=== PATIENT | female | born 1965 | race Caucasian/White ===

== ENCOUNTER 2017-08-21 14:50 | Emergency (ER) | payer OTHER ==
[2017-08-21 17:14] VITALS: BP 135/82
[2017-08-21] MEDS ORDERED: Ketorolac INJ* 60 MG/2 ML VIAL IM ONE (17:33)
--- NOTE | 2017-08-21 17:33 | UC ---
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 holding on to a piece of metal and now has pain in right lower back - History of Current Complaint Chief Complaint: UCBackPain Stated Complaint: BACK PAIN Time Seen by Provider: 08/21/17 17:05 Hx Obtained From: Patient Hx Last Menstrual Period: Jul 22 ?: No Onset/Duration: Sudden Onset, Lasting Days - 1, Still Present Timing: Constant Severity Initially: Moderate Severity Currently: Moderate Pain Intensity: 6 Pain Scale Used: 0-10 Numeric Back Pain: Is Discrete @ Character: Aching, Throbbing, Spasmodic, Stiffness Aggravating Factor(s): Movement Alleviating Factor(s): Nothing Associated Signs And Symptoms: Positive: Negative Related History: Previous Back Injury - Allergies/Home Medications Allergies/Adverse Reactions: Allergies Allergy/AdvReac Type Severity Reaction Status Date / Time Morphine and Related Allergy Severe Difficulty Verified 08/21/17 17:05 Breathing PMH/Surg Hx/FS Hx/Imm Hx Previously Healthy: Yes - Surgical History Surgical History: None - Family History Known Family History: Positive: None - Social History Occupation: Employed Full-time, Works From/At Home Lives: With Family Alcohol Use: Occasionally Substance Use Type: None Smoking Status (MU): Never Smoked Tobacco - Immunization History Most Recent Influenza Vaccination: 06/01/14 Review of Systems Constitutional: Negative Skin: Negative Eyes: Negative ENT: Negative Respiratory: Negative Cardiovascular: Negative Gastrointestinal: Negative Genitourinary: Negative Motor: Negative Neurovascular: Negative Musculoskeletal: Myalgia - lower back Neurological: Negative Psychological: Negative Is Patient Immunocompromised?: No All Other Systems Reviewed And Are Negative: Yes Physical Exam Triage Information Reviewed: Yes Appearance: Well-Appearing, No Pain Distress, Well-Nourished Vital Signs: Initial Vital Signs Temp 98.3 F 08/21/17 17:07 Pulse 68 08/21/17 17:07 Resp 20 08/21/17 17:07 BP 135/82 08/21/17 17:07 Pulse Ox 98 08/21/17 17:07 Vital Signs Reviewed: Yes Eye Exam: Normal Eyes: Positive: Conjunctiva Clear ENT Exam: Normal ENT: Positive: Normal ENT inspection, Hearing grossly normal. Negative: Nasal congestion, Nasal drainage, Trismus, Muffled voice, Hoarse voice Dental Exam: Normal Neck exam: Normal Neck: Positive: Supple, Nontender Respiratory Exam: Normal Respiratory: Positive: Chest non-tender, No respiratory distress, No accessory muscle use Cardiovascular Exam: Normal Cardiovascular: Positive: RRR, Pulses Normal, Brisk Capillary Refill Musculoskeletal Exam: Normal Musculoskeletal: Positive: Strength Intact, No Edema, ROM Limited @ - lower back Neurological Exam: Normal Neurological: Positive: Alert Psychological Exam: Normal Skin Exam: Normal Back Pain Course/Dx - Course Course Of Treatment: continue gental exercise and yoga NSAID andd muscle relaer follow with pcp - Differential Dx/Diagnosis Provider Diagnoses: Low back strain Discharge - Discharge Plan Condition: Stable Disposition: HOME Prescriptions: Cyclobenzaprine TAB* [Flexeril 10 MG TAB*] 10 mg PO TID PRN #20 tab PRN Reason: muscle spasm Ibuprofen TAB* [Motrin TAB* 600 MG] 600 mg PO Q6H PRN #30 tab PRN Reason: pain Patient Education Materials: Low Back Strain (ED), Muscle Spasm (ED), Core Strengthening Exercises (GEN), Lower Back Exercises (ED) Referrals: Tish Mathias MD [Primary Care Provider] - If Needed
[2017-08-21] MEDS ORDERED: Cyclobenzaprine TAB* 10 MG PO ONE (17:34)
== END 2017-08-21 17:55 | disposition home or self-care (01) ==
LOC: UCEAST 14:50
DX: S39.012A Strain of muscle, fascia and tendon of lower back, initial encounter (principal); Z88.5 Allergy status to narcotic agent; X50.0XXA Overexertion from strenuous movement or load, initial encounter; Y93.89 Activity, other specified; Y92.513 Shop (commercial) as the place of occurrence of the external cause
CPT/HCPCS: 99212; A9270-GY; G0463; J1885

== ENCOUNTER 2018-01-10 13:22 | Emergency (ER) | payer OTHER ==
[2018-01-10 13:30] VITALS: BP 158/107
--- NOTE | 2018-01-10 13:55 | UC ---
Upper Extremity HPI - HPI Summary HPI Summary: 2 days ago pt noticed dime-sized red round area on RFA that was very itchy, thought it was an insect bite/sting. Since then area has gotten much bigger/ more swollen, small open area from where she scratched skin has turned black and pt is concerned. Denies significant pain or itching at this point, no fever. Denies any needle use or injection of drugs. - History of Current Complaint Chief Complaint: UCSkin Stated Complaint: INSECT BITE Time Seen by Provider: 01/10/18 13:23 Hx Obtained From: Patient Hx Last Menstrual Period: Jul 22 ?: No Onset/Duration: Sudden Onset, Lasting Days Severity Initially: Mild Severity Currently: Mild Pain Intensity: 3 Location Of Pain: Is Discrete @ Character: Dull Aggravating Factor(s): Other - touch Alleviating Factor(s): Nothing Associated Signs And Symptoms: Positive: Swelling, Redness - Allergies/Home Medications Allergies/Adverse Reactions: Allergies Allergy/AdvReac Type Severity Reaction Status Date / Time morphine Allergy anaph Verified 01/10/18 13:31 PMH/Surg Hx/FS Hx/Imm Hx Previously Healthy: Yes - Surgical History Surgical History: None - Family History Known Family History: Positive: None - Social History Occupation: Employed Full-time Lives: With Family Alcohol Use: Occasionally Substance Use Type: None Smoking Status (MU): Never Smoked Tobacco - Immunization History Most Recent Influenza Vaccination: 06/01/14 Review of Systems Constitutional: Negative Skin: Other - redness, raised area Eyes: Negative ENT: Negative Respiratory: Negative Cardiovascular: Negative Gastrointestinal: Negative Genitourinary: Negative Motor: Negative Neurovascular: Negative Musculoskeletal: Negative Neurological: Negative Psychological: Negative Is Patient Immunocompromised?: No All Other Systems Reviewed And Are Negative: Yes Physical Exam Triage Information Reviewed: Yes Appearance: Well-Appearing, No Pain Distress, Well-Nourished Vital Signs: Initial Vital Signs Temp 98 F 01/10/18 13:28 Pulse 58 01/10/18 13:28 Resp 16 01/10/18 13:28 BP 158/107 01/10/18 13:28 Pulse Ox 100 01/10/18 13:28 Vital Signs Reviewed: Yes Eye Exam: Normal Eyes: Positive: Conjunctiva Clear ENT Exam: Normal ENT: Positive: Normal ENT inspection, Hearing grossly normal, Pharynx normal, TMs normal Dental Exam: Normal Neck exam: Normal Neck: Positive: Supple, Nontender, No Lymphadenopathy Respiratory Exam: Normal Respiratory: Positive: Chest non-tender, Lungs clear, Normal breath sounds, No respiratory distress, No accessory muscle use Cardiovascular Exam: Normal Cardiovascular: Positive: RRR, No Murmur Musculoskeletal Exam: Normal Neurological Exam: Normal Neurological: Positive: Alert Psychological Exam: Normal Skin Exam: Other - 14cm x 8cm swollen area on RFA, very minimal erythema, irreg central crusted very shallow lesion with black fibers caught in crust. Able to clean/peel black fibers and crust away to reveal shallow excoriation Upper Extremity Course/Dx - Course Course Of Treatment: Do not think there is active infection today; counseled pt about s/sx of cellulitis, she will start abx only if there is not obvious improvement within 48 hours. - Differential Dx/Diagnosis Provider Diagnoses: Insect bite, large local reaction Discharge - Sign-Out/Discharge Documenting (check all that apply): Discharge/Admit/Transfer - Discharge Plan Condition: Stable Disposition: HOME Prescriptions: Cephalexin CAP* [Keflex 500 CAP*] 1,000 mg PO BID #20 cap Patient Education Materials: Insect Bite or Sting (ED) Referrals: Tish Mathias MD [Primary Care Provider] - Additional Instructions: As we discussed, I do NOT think your sting is infected. I encourage you to use benadryl and cool soaks; it should start to improve within 48 hours. If it is worsening, or if it gets better and then worse, especially if there is increasing pain, fever, or streaks coming from the area, please start the antibiotic and arrange to follow up with your primary care provider. If you do not need the antibiotic then please leave it at the pharmacy. - Billing Disposition and Condition Condition: STABLE Disposition: HOME
== END 2018-01-10 13:53 | disposition home or self-care (01) ==
LOC: UCEAST 13:22
DX: S50.861A Insect bite (nonvenomous) of right forearm, initial encounter (principal); W57.XXXA Bitten or stung by nonvenomous insect and other nonvenomous arthropods, initial encounter; Y93.9 Activity, unspecified; Y92.9 Unspecified place or not applicable; Z88.5 Allergy status to narcotic agent
CPT/HCPCS: 99211; G0463